=== PATIENT | female | born 1960 | race Caucasian/White ===

== ENCOUNTER 2019-07-15 15:06 | Outpatient (CLI) | payer BC ==
--- NOTE | 2019-07-15 16:24 | MRI ---
MRI Upper Ext Jt Lt WO Con HISTORY: Fell on shoulder 2 months ago. Been having chronic pain getting progressively worse. COMPARISON: None. 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 The infraspinatus tendon is intact. There is a far anterior tear of the supraspinatus tendon. There i s differential retraction of the articular and bursal sided fibers. The articular sided fibers are retracted to the level the rotator cable. There retracted by approximately 9 to 10 mm. The bursal robbi ed fibers are retracted by approximately 6 mm. There is not true fluid density interposed between these tendon margins and the greater tuberosity but I feel that this is just related to granulation t issue in this region. There is some minimal fluid in the subacromial subdeltoid recess. This tear measures only approximately 7 mm in AP dimension. There is tendinosis of the superior fibers of the subscapularis tendon, the biceps tendon is normal i n position within the bicipital groove. There is tendinosis of the intra-articular portion of the biceps tendon no definitive evidence of a SLAP type tear. The inferior glenohumeral ligamentous and labral complex is There is no evidence of any significant rotator cuff muscle atrophy. IMPRESSION: 1. Small far anterior supraspinatus tendon tear as described above. There is not true fluid density i nterposed between the tendon edges and the greater tuberosity but I feel that this is related to granulation tissue in this region. This tear only measures approximately 7 mm in AP dimension. 2. Tendinosis of the subscapularis tendon and intra-articular portion of the biceps
== END 2019-07-15 15:07 | disposition home or self-care (01) ==
LOC: SCSMRI 15:06
PROVIDERS: ATTEND Orthopaedic Surgery
DX: M25.512 Pain in left shoulder (principal); M75.102 Unspecified rotator cuff tear or rupture of left shoulder, not specified as traumatic; M75.82 Other shoulder lesions, left shoulder